=== PATIENT | female | born 1995 | race Caucasian/White ===

== ENCOUNTER 2016-09-03 11:58 | Emergency (ER) | payer OTHER ==
[~2016-09-03] VITALS: Wt 108.0 kg
[~2016-09-03 11:58] MED LIST: AMO500 PO; BACTDS PO; NITR-58 PO; PHEN-537 PO
[2016-09-03] MEDS ORDERED: PSEU120T51 PO (13:29)
[2016-09-03] MEDS ORDERED: IBUP-1542 PO (13:29)
[2016-09-03] MEDS ORDERED: AZIT250T94 PO (13:29)
--- NOTE | 2016-09-03 13:31 | ERD ---
ER Documentation Chief Complaint Date/Time DATE: 09/03/16 TIME: 13:30 Chief Complaint LEFT EAR PAIN X4 WEEKS HPI This 21-year-old female complains of a one-month history of intermittent left ear pain worsening over the last 4 days. She denies any fever, cough, congestion, bleeding or discharge. ROS All systems reviewed and are negative except as per history of present illness. Medications Home Meds Active Scripts Pseudoephedrine Hcl (Sudafed 12 Hour) 120 Mg Tablet.sa, 120 MG PO BID, #10 Prov:VIC TAY MD 09/03/16 Ibuprofen* (Motrin*) 600 Mg Tab, 600 MG PO Q6, #15 TAB Prov:VIC TAY MD 09/03/16 Azithromycin* (Zithromax*) 250 Mg Tablet, 250 MG PO .ZPACK DIRECTED, #6 TAB TAKE 500 MG (2 TABS) THE FIRST DAY THEN 250 MG (1 TAB) DAYS 2-5 Prov:IVC TAY MD 09/03/16 Amoxicillin* (Amoxicillin*) 500 Mg Cap, 500 MG PO BID for 7 Days, CAP Prov:FLAKITA CESAR PA-C 02/19/16 Sulfamethoxazole-Trimethoprim* (Bactrim* DS) 800-160 Mg Tab, 1 TAB PO BID, #14 TAB Prov:JHONATAN MARTINEZC 07/14/15 Phenazopyridine Hcl* (Pyridium*) 100 Mg Tab, 100 MG PO TID Y for burning, #8 TAB Prov:DANIELE SHERMAN 05/02/15 Nitrofurantoin Monohyd Macrocr* (Macrobid*) 100 Mg Capsr, 100 MG PO BID for 7 Days, CAP Prov:DANIELE SHERMAN 05/02/15 Allergies Allergies: Coded Allergies: No Known Allergy (Unverified , 09/17/13) PMhx/Soc History of Surgery: No Anesthesia Reaction: No Hx Neurological Disorder: No Hx Respiratory Disorders: No Hx Cardiac Disorders: No Hx Psychiatric Problems: No Hx Miscellaneous Medical Probl: No Hx Alcohol Use: No Hx Substance Use: No Hx Tobacco Use: No Physical Exam Vitals Vital Signs Date Time Temp Pulse Resp B/P Pulse Ox O2 Delivery O2 Flow Rate FiO2 09/03/16 12:01 97.5 71 18 128/73 98 Physical Exam Const: [] Alert, [id number] Head: Atraumatic Eyes: Normal Conjunctiva ENT: Normal External Ears, Nose and Mouth. Left TM is decreased light reflex with yellow fluid. Canal appears normal. There is no mastoid tenderness. Neck: Full range of motion..~ No meningismus. Resp: Clear to auscultation bilaterally Cardio: Regular rate and rhythm, no murmurs Abd: Soft, non tender, non distended. Normal bowel sounds Skin: No petechiae or rashes Back: No midline or flank tenderness Ext: No cyanosis, or edema Neur: Awake and alert Psych: Normal Mood and Affect Procedures/MDM Patient presents with signs and symptoms of otitis media. There is no evidence of mastoiditis, abscess. She will be treated with Zithromax, Sudafed and ibuprofen. The patient was stable with no new complaints during the ER course. Clinically, there is no current evidence to suggest meningitis, sepsis, acute abdomen, pneumonia, acute coronary syndrome, pulmonary embolism, or any other emergent condition appearing to require further evaluation or hospitalization. The patient should certainly return for any new or worsening symptoms per the aftercare instructions. They should otherwise follow-up with her primary care doctor for reevaluation this week. Departure Diagnosis: Primary Impression: Otitis media Otitis media type: suppurative Laterality: left Chronicity: acute Recurrence: not specified as recurrent Spontaneous tympanic membrane rupture: without spontaneous rupture Qualified Code: H66.002 - Acute suppurative otitis media of left ear without spontaneous rupture of tympanic membrane, recurrence not specified Condition: Stable Patient Instructions: Otitis Media, Abx Tx (Adult) Additional Instructions: See primary doctor and possibly ENT for further evaluation for symptoms despite treatment. Recheck otherwise for new or worsening symptoms. VIC TAY MD Sep 03, 2016 13:31
[2016-09-03 14:19] VITALS: BP 121/71; PULSE 70; RESP 18; TEMP 98.2
== END 2016-09-03 14:22 | disposition home or self-care (01) ==
LOC: FTE 11:58
DX: H66.002 Acute suppurative otitis media without spontaneous rupture of ear drum, left ear (principal)
CPT/HCPCS: 99283